=== PATIENT | female | born 1950 | race Caucasian/White ===

== ENCOUNTER 2024-07-01 09:36 | Emergency (ER) | payer OTHER, SELFPAY ==
[2024-07-01 09:37] VITALS: BP 140/67
--- NOTE | 2024-07-01 10:55 | EDRN ---
Irene RODRIGUEZ in room w/ pt at this time.
--- NOTE | 2024-07-01 11:05 | ED.GENMED ---
History of Present Illness
General
Chief Complaint: Musculo-Skeletal Complaint
Source: patient
Exam Limitations: none
Time Seen by Provider: 07/01/24 10:37
Nursing documentation reviewed up to this point in time: agreed with
History of Present Illness
History of Present Illness:
pt is a 73 y/o F with h/o HTN, gerd
here with atraumatic L hip pain
has had hip pain fo rmonths and says she can walk 1 block before having to stop usually becuase it is sore
she did a lot of walking 4-5 days [place] the [place] and knows she was sore but nothing out of the ordinary.
she had 2 good days no pain and then yesterday she woke up and has not been able to walk well. it is severe pain with movment of her L hip and walking makes it worse
pt tried motrin last night which she is allowe dto take and it didn't help
no radiation of pain into abdomen, numbness/tingling down legs, weakness in legs, fever/chills, urinary symptoms
she has no anesthesia in her perineum
doesn't want to try any narcotics
Past History
Past History
ED Past Medical History: HTN
Social History
Tobacco: Non-smoker
Alcohol: None
Drug: None
Personal:
Living: with family
Review of Systems
Review of Systems
Allergies reviewed?: Yes
All Other Systems: Not applicable
Phy Exam
Physical Exam
Physical Exam:
GENERAL: Alert , in no apparent distress, comfortable at rest
HEAD: NCAT
NECK: no midline tenderness, active ROM intact, no paraspinal muscle tenderness;
CARDIAC: Regular rate and rhythm, no edema
LUNGS: Clear breath sounds bilaterally, no acute respiratory distress, no wheezes/rales/rhonchi
ABDOMEN: Soft, without focal tenderness, no r/g, no cvat, normal bowel sounds, nondistended
NEUROLOGICAL: Alert and oriented, no focal neuro deficits, CN intact, 5/5 strength, sensation intact,
SKIN: Warm and dry, no rash, no redness
MUSCULOSKELETAL: No edema, well perfused. Normal inspection of the left hip, left leg
Patient has no tenderness to palpation of the hip, mild tenderness in the SI joint
He has no pain with flexion of the left hip, external rotation, but with internal rotation has discomfort
Back: No midline tenderness, mild dextroscoliosis, no swelling
negative straight leg raise Bilaterally
PSYCH: Normal and appropriate interaction.
Course
Orders/Labs/Results
Orders:
Orders
07/01/24 10:58
Hip, Left 2-3 Views [CR Hip - LT w/wo Pel 2-3 Vw*] Urgent
Comment:
Reason For Exam: left hip pain ,no trauma
Include a pelvis x-ray?: Yes
Lumbar Spine Complete, 4 View [CR Lumbar Spine Comp Min 4 Vw*] Urgent
Comment:
Reason For Exam: left si joinjt pain
07/01/24 10:59
Acetaminophen [Tylenol] 650 mg PO NOW STA
Ketorolac [Toradol] 15 mg IM NOW STA
07/01/24 12:03
Morphine Sulfate 2 mg IV NOW STA
07/01/24 12:08
Urinalysis Reflex To Culture Urgent
Date Specimen was Collected: 07/01/24
Time Specimen was Collected: 12:06
07/01/24 12:19
Complete Blood Count/With Diff Urgent
Comprehensive Metabolic Panel Urgent
07/01/24 12:43
Dexamethasone Sod Phosphate [Decadron] 6 mg IV NOW STA
Abnormal Lab Results
07/01/24
12:19
Absolute Neuts (auto) 8.0 H 10^3/uL
(1.4-6.5)
Neutrophils % 81.9 H %
(42.2-75.2)
Lymphocytes % 13.7 L %
(20.5-51.1)
BUN 26 H mg/dl
(7-17)
Glucose 111 H mg/dl
(70-99)
07/01/24 12:19
07/01/24 12:19
Vital Signs
Initial and Last Documented VS:
Initial Vital Signs
Temp Pulse Resp BP Pulse Ox
36.6 C 67 18 140/67 99
07/01/24 09:37 07/01/24 09:37 07/01/24 09:37 07/01/24 09:37 07/01/24 09:37
Last Documented Vital Signs
Temp Pulse Resp BP Pulse Ox
36.6 C 61 16 112/52 98
07/01/24 09:37 07/01/24 13:01 07/01/24 13:01 07/01/24 13:01 07/01/24 13:01
MDM/Problems Addressed
Differential Diagnosis Includes:
bursitis, calcific tendinitis,
MDM/Problems Addressed:
73 y/ oFh/o thn
has had L hip pain for years
worse with walking
did a lot of walking a few days ago
and then was ok for 2 days until yestercday am when she woke up and had trouble walking
it has gotten worse and pt is very uncomfortable; took motrin without relief
no weakness/numbness/incontinence, fever, chills, urinary symptomsa, abdominal pain
very positional
doesn't usually need walker
pt is very uncomfortqable with changing position in the stretcher
neg straight leg raise
normal inspection of the hip
tender L si joint and painful rotation of th ehip
suspect bursitis
do not suspect lumbar radiculopathy
or ACS/aortic syndrome
xrays indep reviewed and some arthritis in hip, lumbar compr fx l1 chornic
pt was given toradol and tylenol and really had a lotof pain with walking but could weigh bear
she has walker at home
initially she would not let me give her something stronger than motrin
but then agred to iv morphine which is th eonly opiate she has tolerated beofrfe
after morphine pt feels much better
labs and urine reassuring
d/w ed attending
will write short course rx morphine ER
skelaxin which she has tolerated before
knows not to mix them
tylemnol/medrol dose marcel
ortho
*Critical Care Note
Total Time (30-74mins, 75-104mins- exclusive of procedures): Not Applicable
ED Attending Note
-
Portions of this chart may have been created with voice recognition software.� Occasional wrong word or��sound alike� substitutions may have occurred due to the inherent limitations of voice recognition software.
Discharge Plan
Departure
Patient Disposition: Home (Routine Discharge)
Date of Disposition: 07/01/24
Time of Disposition: 14:05
Patient with high blood pressure during this ER visit?: No
Condition: Fair
Covid-19: Not Applicable
Discharge Problem:
Bursitis of hip, Acute hip pain, Lumbar compression fracture
Instructions: Bursitis ED, Hip Pain ED
Prescriptions:
New
morphine 15 mg tablet extended release
7.5 mg PO Q12H PRN (Reason: PAIN) Qty: 5 0RF
methylprednisolone [Medrol (Marcel)] 4 mg tablets,dose pack
See Rx Instructions .ROUTE .COMPLEX Qty: 21 0RF
Rx Instructions:
for 6 days
metaxalone 400 mg tablet
800 mg PO BID PRN (Reason: muscle pain) Qty: 12 0RF
Referrals:
Delmer Waters DO [Family Provider] - Follow up in 2-3 days
Live Santana MD [Active] - Follow up in 5-7 days (ortho)
Activity Restrictions/Additional Instructions:
Your hip pain may be from a bursitis. This is an inflammation of the bursa sacs that help cushion your joint. Your x-rays did not show any bony fractures in your hip but some mild degenerative changes and then you also have what looks like an
chronic L1 compression deformity.
Take the Medrol Dosepak starting tomorrow and take it as prescribed, each day you will decrease the dose.
For pain you can try the Skelaxin 800 mg 2 times a day as needed, this may make you sleepy.
You can take Tylenol with this 2-3 times a day as well.
If you feel like you need something stronger for pain why do not you try a dose of morphine which you have tolerated before. You can use this sparingly. 1/2 tab every 12 hours as needed Please no driving or drinking alcohol with this medication.
Return for any concerns like leg weakness, severe pain, inability to walk, fevers or chills, urinary changes etc.
Interventions
Interventions:
*Risk Screen - Suicide Last Done: 07/01/24 09:37
*General Assessment Last Done: 07/01/24 11:28
*Neglect/Abuse Screening Last Done: 07/01/24 11:28
ED- Fall Risk Assessment Last Done: 07/01/24 11:29
*ED COVID-19 Vaccine History Last Done: 07/01/24 11:28
ED-Musculoskeletal Assessment Last Done: 07/01/24 11:29
Discharge Date and Time
Print Language: TAMAZIGHT
[2024-07-01] MEDS: TORADOL 15 MG IM (11:23)
[2024-07-01] MEDS: TYLENOL 650 MG PO (11:24)
[2024-07-01 11:28] VITALS: BMI 28.6
[2024-07-01 11:31] VITALS: BP 129/66
--- NOTE | 2024-07-01 11:55 | EDRN ---
Pt ambulated to BR w/ walker. Pt in a lot of pain throughout ambulation to BR. Pt returned to stretcher in w/c. Irene RODRIGUEZ informed of pt's difficulty in ambulating.
[2024-07-01 12:17] LABS: Urine Albumin Trace (Neg - Trace); Urine Bilirubin Negative (Negative); Urine Character Clear (Clear); Urine Color Yellow; Urine Glucose Negative (Negative); Urine Ketone Negative (Negative); Urine Leukocyte Negative (Negative); Urine Nitrite Negative (Negative); Urine Occult Blood Negative (Negative); Urine Urobilinogen Negative (Neg - 1+)
[2024-07-01] MEDS: MORPHINE SULFATE 2 MG IV (12:25)
[2024-07-01 12:30] LABS: % Basophils 0.8 % (0-2); % Eosinophils 0.2 % (0-6); % Immature Granulocytes 0.3 % (0-0.5); % Lymphocytes 13.7 % (20.5-51.1); % Monocytes 3.1 % (1.7-9.3); % Neutrophils 81.9 % (42.2-75.2); Absolute Basophils 0.1 10^3/uL (0-0.2); Absolute Lymphocytes 1.3 10^3/uL (1.2-3.4); Absolute Monocytes 0.3 10^3/uL (0.1-0.6); Hematocrit 40.8 % (37.0-47.0); Mean Corp Hgb Conc. 34.3 g/dL (33.0-37.0); Mean Corpuscular Hgb 29.6 pg (27.0-31.0); Mean Corpuscular Volume 86.3 fL (81.0-99.0); Nucleated Red Blood Cells % 0 %; Platelet Count 281 10^3/uL (130-400); Red Blood Cell Count 4.73 10^6/uL (4.20-5.40); Red Cell Dist. Width 12.7 % (11.5-14.5); White Blood Cell Count 9.7 10^3/uL (4.8-10.8)
[2024-07-01 12:47] LABS: ALT (SGPT) 18 U/L (0-35); AST (SGOT) 28 U/L (14-36); Albumin 4.8 g/dl (3.5-5.0); Alkaline Phosphatase 85 U/L (38-126); Blood Urea Nitrogen 26 mg/dl (7-17); Calcium 9.7 mg/dl (8.4-10.2); Carbon Dioxide 25 mmol/L (22-30); Chloride 103 mmol/L (98-107); Estimated Creatinine Clearance 70 ml/min; Glucose 111 mg/dl (70-99); Potassium 4.6 mmol/L (3.5-5.1); Sodium 139 mmol/L (135-145); Total Bilirubin 0.5 mg/dl (0.2-1.3); Total Protein 7.4 g/dl (6.3-8.2); eGFR > 60.00
[2024-07-01] MEDS: DECADRON 6 MG IV (12:58)
[2024-07-01 13:01] VITALS: BP 112/52
--- NOTE | 2024-07-01 13:20 | EDRN ---
Pt administered cup of water after Irene RODRIGUEZ said okay if pt drinks.
--- NOTE | 2024-07-01 13:26 | EDRN ---
Irene RODRIGUEZ in room w/pt.
[2024-07-01 14:35] VITALS: BP 115/60
== END 2024-07-01 14:35 | disposition home or self-care (01) ==
LOC: EMR 09:36
PROVIDERS: Physician Assistant; EMERGENCY PHYSICIAN Emergency Medicine; FAMILY PHYSICIAN Family Medicine
DX: M70.72 Other bursitis of hip, left hip (principal); M48.56XA Collapsed vertebra, not elsewhere classified, lumbar region, initial encounter for fracture; I10 Essential (primary) hypertension; K21.9 Gastro-esophageal reflux disease without esophagitis
CPT/HCPCS: 99284; 96374; 96375; 96372; 72110; 73502; 80053; 81003; 85025

== ENCOUNTER 2024-07-07 21:00 | Inpatient (IN) | payer OTHER, SELFPAY ==
[2024-07-07 11:23] VITALS: BP 127/60
[2024-07-07 14:54] LABS: % Basophils 0.7 % (0-2); % Eosinophils 0.2 % (0-6); % Immature Granulocytes 0.3 % (0-0.5); % Lymphocytes 12.7 % (20.5-51.1); % Monocytes 3.4 % (1.7-9.3); % Neutrophils 82.7 % (42.2-75.2); Absolute Basophils 0.1 10^3/uL (0-0.2); Absolute Lymphocytes 1.5 10^3/uL (1.2-3.4); Absolute Monocytes 0.4 10^3/uL (0.1-0.6); Absolute Neutrophils 9.9 10^3/uL (1.4-6.5); Hematocrit 44.6 % (37.0-47.0); Hemoglobin 14.9 g/dL (12.0-16.0); Mean Corp Hgb Conc. 33.4 g/dL (33.0-37.0); Mean Corpuscular Hgb 29.3 pg (27.0-31.0); Mean Corpuscular Volume 87.6 fL (81.0-99.0); Mean Platelet Volume 9.5 fL (7.4-10.4); Nucleated Red Blood Cells % 0 %; Platelet Count 322 10^3/uL (130-400); Red Blood Cell Count 5.09 10^6/uL (4.20-5.40); White Blood Cell Count 11.9 10^3/uL (4.8-10.8)
--- NOTE | 2024-07-07 14:54 | ED.GENMED ---
History of Present Illness
General
Chief Complaint: Musculo-Skeletal Complaint
Source: patient
Exam Limitations: none
Time Seen by Provider: 07/07/24 13:30
Nursing documentation reviewed up to this point in time: agreed with
History of Present Illness
History of Present Illness:
73-year-old female past medical history of hypertension presenting to the emergency department today with concerns of left-sided hip discomfort and low back discomfort worse with movement and positioning. Had similar symptoms 1 week ago was seen
here had an x-ray that was normal otherwise felt okay went home. Has had ongoing symptoms and slightly worsened today. Has also been taking muscle relaxers from the primary care doctor as well as steroids without relief. Also has been taking oral
morphine at home.
Past History
Past History
ED Past Medical History: HTN
Social History
Tobacco: Non-smoker
Alcohol: None
Drug: None
Personal:
Living: with family
Review of Systems
Review of Systems
Allergies reviewed?: Yes
All Other Systems: ROS reviewed and negative except as documented in HPI and ROS
Phy Exam
Physical Exam
Physical Exam:
GENERAL: Alert , in no apparent distress
EYE: pupils equal and reactive
NECK: Supple, no significant adenopathy.
ENT: o/p clr, mmm.
CARDIAC: Regular rate and rhythm .
LUNGS: Clear breath sounds bilaterally, no acute respiratory distress, no wheezes/rales/rhonchi
ABDOMEN: Soft, without focal tenderness, no r/g, no cvat
NEUROLOGICAL: Alert and oriented, no focal neuro deficits
SKIN: Warm and dry, skin intact.
MUSCULOSKELETAL: Discomfort to the left hip reproducible with movement however not reproducible to palpation no redness or warmth good range of motion in general. No edema, well perfused.
PSYCH: Normal and appropriate interaction.
Course
Orders/Labs/Results
Orders:
Orders
07/07/24 14:[address] Pelvis W/o Iv Contrast Urgent
Comment:
Reason For Exam: left hip pain, trouble ambulating, xray normal
07/07/24 14:39
Morphine Sulfate [Roxanol Oral Concentrate] 10 mg PO NOW STA
07/07/24 14:46
BMP [Basic Metabolic Panel] Urgent
CBC/With Diff [Complete Blood Count/With Diff] Urgent
07/07/24 14:48
Urinalysis Reflex To Culture Urgent
Date Specimen was Collected: 07/07/24
Time Specimen was Collected: 14:46
07/07/24 16:55
Pt Eval And Treat Urgent
Activity Level: Out of Bed-Early Mobility
Abnormal Lab Results
07/07/24
14:46
WBC 11.9 H 10^3/uL
(4.8-10.8)
Absolute Neuts (auto) 9.9 H 10^3/uL
(1.4-6.5)
Neutrophils % 82.7 H %
(42.2-75.2)
Lymphocytes % 12.7 L %
(20.5-51.1)
BUN 34 H mg/dl
(7-17)
Glucose 110 H mg/dl
(70-99)
07/07/24 14:46
07/07/24 14:46
Vital Signs
Initial and Last Documented VS:
Initial Vital Signs
Temp Pulse Resp BP Pulse Ox
98.8 F 65 17 127/60 96
07/07/24 11:23 07/07/24 11:23 07/07/24 11:23 07/07/24 11:23 07/07/24 11:23
Last Documented Vital Signs
Temp Pulse Resp BP Pulse Ox
98.8 F 65 17 127/60 96
07/07/24 11:23 07/07/24 11:23 07/07/24 11:23 07/07/24 11:23 07/07/24 11:23
MDM/Problems Addressed
MDM/Problems Addressed:
73-year-old female presenting to the emergency department today with concerns of atraumatic left-sided hip discomfort over the past week or so. Has been taking it at home medications without relief. Vital signs normal on arrival pain worse with
movement. No overlying redness or warmth does not appear to be consistent with infection. Labs performed showing slight white count of 11.9 but otherwise no emergent findings. CT without emergent findings. Patient unable to ambulate here in
significant pain despite morphine plan to admit for PT assessment and further pain management.
*Critical Care Note
Total Time (30-74mins, 75-104mins- exclusive of procedures): Not Applicable
ED Attending Note
-
Portions of this chart may have been created with voice recognition software.� Occasional wrong word or��sound alike� substitutions may have occurred due to the inherent limitations of voice recognition software.
Discharge Plan
Departure
Patient Disposition: Admit
Date of Disposition: 07/07/24
Time of Disposition: 17:16
Admit to: Med/Surg
Admit to doctor: Lucio
Presentation/result/management discussed w/ accepting MD/DO: Hospitalist
Patient with high blood pressure during this ER visit?: No
Condition: Good
Covid-19: Not Applicable
Discharge Problem:
Acute hip pain, Ambulatory dysfunction
Prescriptions:
No Action
morphine 15 mg tablet extended release
7.5 mg PO Q12H PRN (Reason: PAIN) Qty: 5 0RF
methylprednisolone [Medrol (Marcel)] 4 mg tablets,dose pack
See Rx Instructions .ROUTE .COMPLEX Qty: 21 0RF
Rx Instructions:
for 6 days
metaxalone 400 mg tablet
800 mg PO BID PRN (Reason: muscle pain) Qty: 12 0RF
Referrals:
Delmer Waters, DO [Family Provider] -
Interventions
Interventions:
*Risk Screen - Suicide Last Done: 07/07/24 11:24
*General Assessment Last Done: 07/07/24 11:24
*Neglect/Abuse Screening Last Done: 07/07/24 11:24
ED- Fall Risk Assessment Last Done: 07/07/24 13:41
*ED COVID-19 Vaccine History Last Done: 07/07/24 11:24
ED-Musculoskeletal Assessment Last Done: 07/07/24 13:41
Discharge Date and Time
Print Language: WALLISIAN
[2024-07-07] MEDS: ROXANOL ORAL CONCENTRATE 10 MG PO (15:04)
[2024-07-07 15:10] LABS: Blood Urea Nitrogen 34 mg/dl (7-17); Calcium 10.1 mg/dl (8.4-10.2); Carbon Dioxide 30 mmol/L (22-30); Chloride 100 mmol/L (98-107); Glucose 110 mg/dl (70-99); Potassium 5.1 mmol/L (3.5-5.1); Sodium 139 mmol/L (135-145); eGFR > 60.00
[2024-07-07 15:36] LABS: Urine Albumin Negative (Neg - Trace); Urine Bilirubin Negative (Negative); Urine Character Clear (Clear); Urine Color Yellow; Urine Glucose Negative (Negative); Urine Ketone Negative (Negative); Urine Leukocyte Negative (Negative); Urine Nitrite Negative (Negative); Urine Occult Blood Negative (Negative); Urine Urobilinogen Negative (Neg - 1+)
[2024-07-07 16:00] VITALS: BP 103/56
--- NOTE | 2024-07-07 18:10 | HPS.HSE ---
Addendum entered and electronically signed by July Valdes MD 07/07/24 20:43:
Patient had chest pain while in ER. EKG showed sinus bradycardia with HR 40-50s. Troponin negative.
Addendum entered and electronically signed by July Valdes MD 07/07/24 18:12:
continued tiazanidine.
Original Note:
Family Physician
-
Family Physician: Delmer Waters, DO
Chief Complaint
-
left hip pain
History of Present Illness
73-year-old female past medical history of hypertension, presenting to emergency room with left-sided hip discomfort and lower back pain worse with movement and positioning for the past week. Patient had similar symptoms 1 week ago and had x-ray
that was normal and went home. He is having ongoing symptoms slightly worse today. She has been taking multiple muscle relaxers and steroids from the primary care doctor without relief. Also been taking oral morphine at home.
She came here 6 days ago with negative imaging apart from old L1 lumbar compression fracture. Was given prescription for morphine, metolazone and Medrol Dosepak. These medications did not help. She had steroid injection by primary care physician.
She denies smoking or alcohol use.
Medical History
Past Medical History
Past Medical History: Reports Other (hypertension)
Past Surgical History: Reports None
Social History
Tobacco: Non-smoker
Alcohol: None
Drug: None
Family History
Family History: Not pertinent
Allergies / Home Medications
Allergies reflects when Allergies were last updated in [employer].
Home Medications with original date entered in [employer]
Allergy/Medication List:
Allergies
Allergy/AdvReac Type Severity Reaction Status Date / Time
pentazocine lactate Allergy Severe hallucinati Verified 07/07/24 11:24
[From Talwin] ons
acetaminophen [From Tylox] Allergy Rash Verified 07/07/24 11:24
codeine [Codeine] Allergy Rash Verified 07/07/24 11:24
meperidine HCl [From Demerol] Allergy Rash Verified 07/07/24 11:24
oxycodone HCl [From Tylox] Allergy Rash Verified 07/07/24 11:24
Penicillins Allergy Rash Verified 07/07/24 11:24
x-ray dye Allergy Hives Uncoded 07/07/24 11:24
Home Medications
metaxalone 400 mg tablet 800 mg (2 x 400 mg) PO BID PRN muscle pain #12 tabs 07/01/24
methylprednisolone 4 mg tablets in a dose pack (Medrol (Marcel)) See Rx Instructions PO .COMPLEX #21 ea 07/01/24
morphine 15 mg tablet,extended release 7.5 mg (1/2 x 15 mg) PO Q12H PRN PAIN #5 tabs 07/01/24
Review of Systems
-
History Source: Patient
A 12 point ROS was completed and negative except as noted: Yes
Constitutional: Reports No Symptoms
EENT: Reports No Symptoms
Respiratory: Reports No Symptoms
Cardiac: Reports No Symptoms
Abdomen/GI: Reports No Symptoms
: Reports No Symptoms
Musculoskeletal: Reports No Symptoms
Skin: Reports No Symptoms
Neurological: Reports No Symptoms
Endocrine: Reports No Symptoms
Hematologic/Lymphatic: Reports No Symptoms
Psych: Reports No Symptoms
Physical Exam
Vital Signs
Vital Signs
Temp Pulse Resp BP Pulse Ox
98.8 F 52 22 103/56 99
07/07/24 11:23 07/07/24 16:00 07/07/24 16:00 07/07/24 16:00 07/07/24 16:00
Physical Exam
General: Well Developed, Well Nourished and No Apparent Distress
HEENT: NormoCephalic, Moist mucous membranes and Atraumatic
Respiratory: Clear
Cardiac: S1/S2 and Regular Rhythm; No Murmur or Rub
GI: Soft, Non Tender, Non Distended and Normal Bowel Sounds; No Organomegaly
Rectal: Deferred by Provider
Musculoskeletal: No Clubbing, No Cyanosis and No Edema
Skin: No Rash
Neuro: Nonfocal/grossly intact
Laboratory Results
-
07/07/24 14:46
07/07/24 14:46
Data Reviewed
-
Lab Data: Labs Reviewed by me
Old Records: Reviewed
Impression/Plan
-
IMPRESSION:
PLAN:
# Left hip pain/ambulatory dysfunction
-CT scan of pelvis no acute fracture or dislocation, mild degenerative changes
-Tylenol, ibuprofen, morphine for pain
-Lidocaine patch
-PT/OT
Essential hypertension
Full code
DVT prophylaxis�heparin
Regular diet
[2024-07-07 19:05] VITALS: BP 113/51
[2024-07-07] MEDS: MORPHINE SULFATE 2 MG IV ×2 (19:06→23:54)
[2024-07-07 19:54] LABS: Troponin I < 0.012 ng/ml
[2024-07-07] MEDS: PROTONIX IV 40 MG IV (20:02)
[2024-07-07] MEDS: NSS (PRESERVATIVE FREE) 10 ML IV (20:03)
[2024-07-07 20:45] VITALS: BP 105/46; BMI 27.6
[2024-07-07] MEDS: HEPARIN 5000 UNITS SC (21:45)
[2024-07-07 23:36] VITALS: BP 107/52
[2024-07-08] VITALS (8 sets, daily range): BP systolic 97–118; BP diastolic 47–74; PULSE 51; O2SAT 96
--- NOTE | 2024-07-08 00:42 | PTCARENOTE ---
Pt states having intermittent chest pain in the middle of her chest. HR 40's while sleeping. Pt denies any other symptoms. 'I think it's nerves and stress. I am clenching my jaw at times.' Will continue to monitor. aware, pt has these same
symptoms in the ED.
[2024-07-08] MEDS: ZANAFLEX 2 MG PO ×4 (00:57→23:14)
[2024-07-08] MEDS: MORPHINE SULFATE 2 MG IV (04:51)
[2024-07-08 07:52] LABS: % Basophils 0.6 % (0-2); % Eosinophils 3.6 % (0-6); % Immature Granulocytes 0.3 % (0-0.5); % Lymphocytes 20.8 % (20.5-51.1); % Monocytes 8.6 % (1.7-9.3); % Neutrophils 66.1 % (42.2-75.2); Absolute Basophils 0.1 10^3/uL (0-0.2); Absolute Eosinophils 0.4 10^3/uL (0-0.7); Absolute Lymphocytes 2.1 10^3/uL (1.2-3.4); Absolute Monocytes 0.9 10^3/uL (0.1-0.6); Absolute Neutrophils 6.7 10^3/uL (1.4-6.5); Hematocrit 41.2 % (37.0-47.0); Hemoglobin 13.7 g/dL (12.0-16.0); Mean Corp Hgb Conc. 33.3 g/dL (33.0-37.0); Mean Corpuscular Hgb 29.5 pg (27.0-31.0); Mean Corpuscular Volume 88.6 fL (81.0-99.0); Mean Platelet Volume 10.3 fL (7.4-10.4); Nucleated Red Blood Cells % 0 %; Platelet Count 290 10^3/uL (130-400); Red Blood Cell Count 4.65 10^6/uL (4.20-5.40); Red Cell Dist. Width 13.2 % (11.5-14.5); White Blood Cell Count 10.2 10^3/uL (4.8-10.8)
[2024-07-08 08:10] LABS: ALT (SGPT) 217 U/L (0-35); AST (SGOT) 196 U/L (14-36); Albumin 4.1 g/dl (3.5-5.0); Alkaline Phosphatase 149 U/L (38-126); Blood Urea Nitrogen 28 mg/dl (7-17); Calcium 9.4 mg/dl (8.4-10.2); Carbon Dioxide 32 mmol/L (22-30); Chloride 99 mmol/L (98-107); Estimated Creatinine Clearance 48 ml/min; Glucose 86 mg/dl (70-99); Potassium 4.5 mmol/L (3.5-5.1); Sodium 139 mmol/L (135-145); Total Bilirubin 0.6 mg/dl (0.2-1.3); Total Protein 6.6 g/dl (6.3-8.2); eGFR 59.12
[2024-07-08] MEDS: LIDOCAINE 4% PATCH 1 PATCH TOPICAL (08:39)
--- NOTE | 2024-07-08 08:39 | W.PN.HOSP.TC ---
Today's Communication/Plan
-
see bold
Assessment / Plan
Assessment / Plan
#Left posterior hip/buttock pain
#Probable L3-L4 radiculopathy
CT scan of pelvis no acute fracture or dislocation, mild degenerative changes
Patient has completed a steroid taper prior to admission, she is also received a steroid injection in the hip
Continue lidocaine patch scheduled, ibuprofen as needed, hydromorphone as needed, Zanaflex as needed
Seen by PT/OT, who recommends home care
#Elevated LFTs
Check right upper quadrant abdominal ultrasound, check hepatitis panel
Discontinue Tylenol, trend LFTs
#Essential hypertension
Blood pressure low at 97/47, hold amlodipine/hydrochlorothiazide/valsartan
DVT prophylaxis�subcu Lovenox
Full code
Total time spent to see the patient on the floor, examine the patient, review data and lab results, discuss treatment plan with patient, nursing staff around 45 minutes.
Physical Exam
General: No acute distress
HEENT: Normocephalic, Atraumatic, EOMI, MMM
Respiratory: Clear to Auscultation bilaterally
Cardiac: Normal S1/S2, Regular Rate and Rhythm
GI: Soft, Nontender, Nondistended, Normal Bowel Sounds
Extremities: No Clubbing, Cyanosis, or Edema
Neuro: Nonfocal/Grossly Intact
Psych: Calm, Cooperative
Derm: No Visible lesions
Anticipated Discharge: Within 24 hours
Subjective/Interval History
-
Date of Service: July 08, 2024
Patient reports her left hip pain is tolerable at rest, becomes intense with movement and activity. No fever, no chest pain, no shortness of breath.
Objective Data
-
Labs:
Laboratory Results
07/08/24
06:42
WBC 10.2
Hgb 13.7
Hct 41.2
Plt Count 290
Sodium 139
Potassium 4.5
Chloride 99
Carbon Dioxide 32 H
BUN 28 H
Creatinine 1.0
Glucose 86
Calcium 9.4
Total Bilirubin 0.6
AST 196 H
ALT 217 H
Alkaline Phosphatase 149 H
Vital Signs:
Vital Signs
Temp Pulse Resp BP Pulse Ox
98.7 F 53 18 118/61 98
07/08/24 07:00 07/08/24 07:00 07/08/24 07:00 07/08/24 07:00 07/08/24 07:00
I&O
07/07/24 07/08/24 07/09/24
06:59 06:59 06:59
Intake Total 240 / 240
Balance 240 / 240
[2024-07-08] MEDS: PROTONIX 40 MG PO (08:40)
[2024-07-08] MEDS: HEPARIN 5000 UNITS SC (08:40)
[2024-07-08] MEDS: DILAUDID 4 MG PO (09:42)
[2024-07-08] MEDS: MIRALAX 17 GRAMS PO (17:12)
[2024-07-08] MEDS: MOTRIN 400 MG PO ×2 (17:15→23:14)
[2024-07-08] MEDS: NORVASC 5 MG PO (17:37)
[2024-07-08] MEDS: LOVENOX 40 MG SC (17:37)
--- NOTE | 2024-07-08 17:42 | CM ---
Patient lives with spouse in a condo, is independent with adl's and ambulation, no dme, patient drives, patient has a walker in home that she does not use. plan is to home with visiting nurses, patient is agreeable to [facility] visiting nurses.
Plan; Home with [facility] visiting nurses.
PCP: Delmer Bo
[facility] in [place]
[2024-07-08] MEDS: SENOKOT-S PO (20:17)
[2024-07-09 03:50] VITALS: BP 122/55
[2024-07-09] MEDS: LIDOCAINE 4% PATCH TOPICAL (07:39)
[2024-07-09] MEDS: PROTONIX 40 MG PO (07:40)
[2024-07-09] MEDS: MIRALAX PO (07:40)
[2024-07-09] MEDS: MOTRIN 400 MG PO ×2 (07:40→13:47)
[2024-07-09] MEDS: ZANAFLEX 2 MG PO ×2 (07:40→13:47)
[2024-07-09] MEDS: SENOKOT-S 2 TABLET PO (07:41)
[2024-07-09 08:04] LABS: ALT (SGPT) 151 U/L (0-35); AST (SGOT) 72 U/L (14-36); Albumin 4.3 g/dl (3.5-5.0); Alkaline Phosphatase 124 U/L (38-126); Blood Urea Nitrogen 33 mg/dl (7-17); Calcium 9.7 mg/dl (8.4-10.2); Carbon Dioxide 31 mmol/L (22-30); Chloride 100 mmol/L (98-107); Estimated Creatinine Clearance 48 ml/min; Glucose 89 mg/dl (70-99); Potassium 5.3 mmol/L (3.5-5.1); Sodium 138 mmol/L (135-145); Total Bilirubin 0.5 mg/dl (0.2-1.3); Total Protein 6.6 g/dl (6.3-8.2); eGFR 59.12
--- NOTE | 2024-07-09 09:42 | W.PN.HOSP.TC ---
Today's Communication/Plan
-
Discharge today
Assessment / Plan
Assessment / Plan
#Left posterior hip/buttock pain
#Probable L3-L4 radiculopathy
CT scan of pelvis no acute fracture or dislocation, mild degenerative changes
Patient has completed a steroid taper prior to admission, she is also received a steroid injection in the hip
Pain much improved, medically stable for discharge on ibuprofen as needed, hydromorphone as needed, Zanaflex as needed
Seen by PT/OT, who recommends home care
#Elevated LFTs
Right upper quadrant ultrasound unremarkable
LFTs normalizing, limit acetaminophen use
#Essential hypertension
Blood pressure low at 97/47, hold amlodipine/hydrochlorothiazide/valsartan
DVT prophylaxis�subcu Lovenox
Full code
Physical Exam
General: No acute distress
HEENT: Normocephalic, Atraumatic, EOMI, MMM
Respiratory: Clear to Auscultation bilaterally
Cardiac: Normal S1/S2, Regular Rate and Rhythm
GI: Soft, Nontender, Nondistended, Normal Bowel Sounds
Extremities: No Clubbing, Cyanosis, or Edema
Neuro: Nonfocal/Grossly Intact
Psych: Calm, Cooperative
Derm: No Visible lesions
Anticipated Discharge: Today
Subjective/Interval History
-
Date of Service: July 09, 2024
Patient reports that her right hip/buttock pain has improved dramatically. Reports feeling better about being able to ambulate with a decreased pain. No chest pain, no shortness of breath. No fever, no vomiting.
Objective Data
-
Labs:
Laboratory Results
07/09/24
07:09
Sodium 138
Potassium 5.3 H
Chloride 100
Carbon Dioxide 31 H
BUN 33 H
Creatinine 1.0
Glucose 89
Calcium 9.7
Total Bilirubin 0.5
AST 72 H
ALT 151 H
Alkaline Phosphatase 124
Vital Signs:
Vital Signs
Temp Pulse Resp BP Pulse Ox
98.1 F 43 18 122/55 98
07/09/24 03:50 07/09/24 03:50 07/09/24 03:50 07/09/24 03:50 07/09/24 03:50
I&O
07/08/24 07/09/24 07/10/24
06:59 06:59 06:59
Intake Total 240 / 240 1620 / 1620
Balance 240 / 240 1620 / 1620
[2024-07-09 11:03] VITALS: BP 97/37
--- NOTE | 2024-07-09 13:42 | W.DCSUMMARY ---
Discharge Summary
Discharge Data
Date of Admission: 07/07/24
Date of Discharge: 07/09/24
-
Pending Results: No
Hospital Course
Discharge diagnosis:
Intractable left posterior hip/buttock pain
Probable lumbar radiculopathy
Elevated liver function test
Essential hypertension
Pelvis CT: No acute fracture or dislocation.
Mild degenerative changes of the pubis symphysis, both hips, bilateral sacroiliac joints and partially visualized lower lumbar spine.
Limited evaluation of pelvic viscera demonstrates diverticulosis coli.
Evaluation of additional soft tissue structures such as ligaments and tendons is limited by CT. Grossly, no abnormalities noted.
Hospital course:
73-year-old female with a past medical history of hypertension presented with a 1 week history of worsening right buttock/hip pain. She was seen in the emergency room 6 days ago, and lumbar x-ray showed old L1 lumbar compression fracture. She was
discharged on morphine and Medrol Dosepak. She has finished her Medrol Dosepak, and received a right hip steroid injection. Despite this, she continued to have severe pain.
She was found to have mildly elevated liver function tests. Suspect this is due to acetaminophen use and dehydration. Abdominal ultrasound was negative. Her liver function tests improved on the day of discharge.
Patient was treated with ibuprofen and hydromorphone. She was seen in conjunction with PT, who recommended home care. After several days, her right buttock/hip pain improved dramatically. She was able to comfortably ambulate. She is medically
stable for discharge. She needs to follow-up with her primary care doctor in 1 week.
Disposition: Home with home care
Discharge planning: Required 39 minutes
Discharge Plan
-
Patient Disposition: Home with Home Care
Discharge Diagnosis/Procedures: Lumbar radiculopathy, elevated liver function tests, hyperkalemia
Condition: Fair
Diet: Regular
Activity: As tolerated
Driving Restrictions: As prior to admission
Blood Work: CMP with your PCP in 1 week
Other Services: [facility] and PT
Activity Restrictions/Additional Instructions:
Your blood pressure in the hospital was on the lower side. It was 97/37 on the day of discharge. You were only on amlodipine 5 mg daily at that time.
Would recommend holding amlodipine, valsartan�hydrochlorothiazide until you see your primary care doctor for repeat blood pressure check.
If it is high, you can resume at that point.
You can take Tylenol/acetaminophen 1 g up to twice a day for your pain.
Please take ibuprofen with food. Stay hydrated.
Follow-up with your primary care doctor in 1 week.
Referrals:
Delmer Waters DO [Family Provider] - in one week
Prescriptions:
New
sennosides-docusate sodium 8.6-50 mg Tablet
2 tab PO BID Qty: 60 0RF
hydromorphone 2 mg Tablet
2 mg PO Q4HPRN PRN (Reason: moderate pain) Qty: 20 0RF
ibuprofen 400 mg Tablet
400 mg PO Q6HPRN PRN (Reason: mild pain) Qty: 60 0RF
Continued
tizanidine 2 mg Tablet
2 mg PO Q8H
omeprazole 20 mg Tablet,Delayed Release (Dr/Ec)
20 mg PO DAILY
morphine 15 mg tablet extended release
7.5 mg PO D43MITA PRN (Reason: severe PAIN)
Held
amlodipine [Norvasc] 5 mg Tablet
5 mg PO QPM
Hold Instructions: Resume on 07/16/24.
valsartan-hydrochlorothiazide 320-12.5 mg Tablet
1 tab PO DAILY
Hold Instructions: Resume on 07/16/24.
Discharge Orders:
Discharge Patient (As Directed); Ordered 07/09/24
Ordered By: Ashish Figueroa
Discharge Date and Time
Discharge Date/Time: 07/09/24 15:45
Print Language: SYRIAC
[2024-07-09 14:35] VITALS: BP 95/45
--- NOTE | 2024-07-09 15:07 | CM ---
Addendum entered by Stella Abdul 07/09/24 15:13:
Patient snitched to inpatient.
Original Note:
Patient is for discharge to home today, patient has charged her mind and no longer wants [facility]. [facility] liaison contacted.
Plan; Home with [facility].
--- NOTE | 2024-07-09 15:33 | VNURNOTE ---
Chart reveiwed. [facility] Home Health Liaison met with patient and spouse at bedside to discuss [facility] nurse/therapy, visits, schedule and homebound status. Patient is agreeable and understands that
visits at home will be 2-3 x per week to assess and teach medical management. [facility] brochure provided with contact information. Patient is aware that [facility] will contact them for start of care in 1-2 days after discharge from . [facility] referral
completed in Care Port.
== END 2024-07-09 15:45 | disposition home health service (06) | DRG 552 ==
LOC: 4 WEST ACU 21:00
PROVIDERS: Nurse Practitioner Family; Physician Assistant; ADMITTING PHYSICIAN Hospitalist; ATTENDING PHYSICIAN Family Medicine; EMERGENCY PHYSICIAN Student in an Organized Health Care Education/Training Program; FAMILY PHYSICIAN Family Medicine
DX: M54.16 Radiculopathy, lumbar region (principal); I10 Essential (primary) hypertension; K57.30 Diverticulosis of large intestine without perforation or abscess without bleeding; E87.5 Hyperkalemia
CPT/HCPCS: 72192; 76700; 80048; 80053; 81003; 84484; 85025; 93005; 96374; 97163; 97166; 99285

== ENCOUNTER → 2024-08-18 07:02 | Outpatient (REF) | payer OTHER, SELFPAY | LOC: PAVMRI 07:02 | PROVIDERS: ATTENDING PHYSICIAN Specialist; FAMILY PHYSICIAN Family Medicine | DX: M25.552 Pain in left hip (principal); M54.16 Radiculopathy, lumbar region | CPT/HCPCS: 72148 ==

== ENCOUNTER → 2024-08-24 13:11 | Outpatient (REF) | payer OTHER, SELFPAY | LOC: HWRAD 13:11 | PROVIDERS: ATTENDING PHYSICIAN Specialist; FAMILY PHYSICIAN Family Medicine | DX: M54.16 Radiculopathy, lumbar region (principal) | CPT/HCPCS: 72120 ==

== ENCOUNTER → 2024-10-05 11:53 | Outpatient (REF) | payer OTHER, SELFPAY | LOC: HWRAD 11:53 | PROVIDERS: ATTENDING PHYSICIAN Specialist; FAMILY PHYSICIAN Family Medicine | DX: M25.551 Pain in right hip (principal) | CPT/HCPCS: 73523 ==